=== PATIENT | female | born 1985 | race Caucasian/White ===

== ENCOUNTER 2023-05-01 14:44 | Outpatient (OUT) | payer BC, OTHER, SELFPAY ==
--- NOTE | 2023-05-01 14:48 | MM_ITS ---
Patient: TIAN HESS Exam Date: 05/01/2023 : 1985 Gender:F Ordering : Non-Staff Physician Admission #: [id number] Family : ORAL JOHNSTON Order #: [id number] CLICK HERE TO VIEW EXAM RADIOLOGY REPORT PROCEDURE: MM TOMOSYNTHESIS SCREENING BI COMPARISON: None. INDICATIONS: Screening Z12.31 Calculator Name NCI Breast Cancer Risk Assessment Tool 5 Year Breast Cancer Risk 0.40% Lifetime Breast Cancer Risk 8.00% Personal Breast Cancer No Personal Ovarian Cancer No Treatments None Family Cancers None LOCATION: [facility] BREAST COMPOSITION: Scattered areas fibroglandular density. FINDINGS: DIAGNOSTIC CATEGORY 1--NEGATIVE. RIGHT BREAST: No significant suspicious finding. LEFT BREAST: No significant suspicious finding. Incidental loop recorder within medial left breast. RECOMMENDATIONS: ROUTINE MAMMOGRAM AND CLINICAL EVALUATION IN 12 MONTHS. PLEASE NOTE: A NORMAL MAMMOGRAM DOES NOT EXCLUDE THE POSSIBILITY OF BREAST CANCER. A CLINICALLY SUSPICIOUS PALPABLE LUMP SHOULD BE BIOPSIED. Dictated by: Wale Ocampo M.D. on 05/03/2023 at 09:58 Approved by: Wale Ocampo M.D. on 05/03/2023 at 10:00
== END 2023-05-01 14:45 | disposition home or self-care (01) ==
LOC: MAMMO 14:44
DX: Z12.31 Encounter for screening mammogram for malignant neoplasm of breast (principal)
CPT/HCPCS: 77063; 77067

== ENCOUNTER 2023-07-30 21:09 | Emergency (ER) | payer BC, OTHER, SELFPAY ==
[2023-07-30 21:17] VITALS: BP 140/80; PULSE 79; RESP 16; TEMP 36.6; O2SAT 97; BMI 38.7
[2023-07-30 21:45] VITALS: BP 133/73; PULSE 79; RESP 20; O2SAT 96
[2023-07-30 21:50] VITALS: PULSE 85
--- NOTE | 2023-07-30 21:51 | PC.NURSE ---
States had seizure on the 16th and has headache since.
[2023-07-30 22:00] VITALS: BP 133/69; PULSE 80; RESP 24; O2SAT 95
--- NOTE | 2023-07-30 22:09 | ED.GENADUL1 ---
HPI - General Adult General Chief complaint: Headache Stated complaint: MIGRAINE-LOOP RECORDER DIZZINESS Time Seen by Provider: 07/30/23 22:01 Source: patient Mode of arrival: walk-in History of Present Illness HPI narrative: presents complaining of migraine. States ongoing for 24 days. States she has had migraines last longer. States one last 48 days last year. States she has not been seen for her migraines. Does have a history of seizures. States workup was neg for seizure and she was referred to cardiology. Had loop recorder placed. States she had a 12 second pause and then another seizure . States it was after this last seizure that her migraine started. States cardiology is scheduling her for a pacemaker. Migraine associated with photophobia. States headache the same as past migraines. No fever or nausea. no paresthesia Onset (ago): week(s) Related Data Allergies Allergy/AdvReac Type Severity Reaction Status Date / Time amoxicillin Allergy Verified 07/30/23 21:32 Review of Systems ROS Status of ROS 10 or more systems reviewed and unremarkable except as noted in history and below PFSH PFSH Social History Smoking status: Never smoker Exam Constitutional Vital Signs, click to edit/add: Last Vital Signs Temp 97.8 F 07/30/23 21:17 Pulse 69 07/31/23 00:00 Resp 16 07/31/23 00:00 BP 132/68 07/31/23 00:00 Pulse Ox 96 07/31/23 00:00 O2 Del Method Room Air 07/31/23 00:00 Common normals: no apparent distress, average body habitus, oriented x3, no limitations, healthy appearing, alert and well nourished Other: patient resting and playing with her phone HENMT Common normals: normocephalic and head/scalp atraumatic Eye Common normals: EOMs intact bilaterally and conjunctivae normal Other: mild photophobia Respiratory Common normals: normal respiratory effort, no retractions, no use of accessory muscles and clear to auscultation bilaterally Cardio Common normals: regular rate, regular rhythm, S1 normal heart sound and S2 normal heart sound GI Common normals: Normal to inspection, nondistended, normoactive bowel sounds present, soft to palpation and non-tender Extremity Common normals: normal to inspection and full ROM Neuro Common normals: oriented x3, CN's II-XII intact bilaterally, moves all extremities, no focal motor deficits and no sensory deficits noted Psych Appearance: grossly normal Course Vital Signs Vital signs: Vital Signs Temperature 97.8 F 07/30/23 21:17 Pulse Rate 79 07/30/23 21:17 Respiratory Rate 16 07/30/23 21:17 Blood Pressure 140/80 07/30/23 21:17 Pulse Oximetry 97 07/30/23 21:17 Oxygen Delivery Method Room Air 07/30/23 21:17 Temperature 97.8 F 07/30/23 21:17 Pulse Rate 69 07/31/23 00:00 Respiratory Rate 16 07/31/23 00:00 Blood Pressure 132/68 07/31/23 00:00 Pulse Oximetry 96 07/31/23 00:00 Oxygen Delivery Method Room Air 07/31/23 00:00 Medical Decision Making MDM Narrative Medical decision making narrative: patient presents with a migraine. Treated successfully with resolution of her headache prior to discharge. Discharged home in improved condition. She is to follow up with her family doctor Lab Data Labs: Lab Results 07/30/23 Range/Units 22:45 WBC 13.4 H (4.0-11.0) 10^3/uL RBC 4.24 (4.20-5.40) 10^6/uL Hgb 12.6 (12.0-16.0) g/dL Hct 38.5 (36.0-48.0) % MCV 90.8 (81.0-99.0) fL MCH 29.7 (26.7-34.0) pg MCHC 32.7 (29.9-35.2) g/dL RDW 12.5 (11.0-15.0) % Plt Count 311 (150-450) 10^3/uL MPV 9.7 (9.5-13.5) fL Neut % (Auto) 71.9 (43.0-75.0) % Lymph % (Auto) 18.9 L (20.5-60.0) % [place] % (Auto) 7.6 (1.7-12.0) % Eos % (Auto) 0.7 L (0.9-7.0) % Baso % (Auto) 0.6 (0.2-2.0) % Neut # (Auto) 9.7 H (1.4-6.5) 10^3/uL Lymph # (Auto) 2.5 (1.2-3.8) 10^3/uL [place] # (Auto) 1.0 H (0.3-0.8) 10^3/uL Eos # (Auto) 0.1 (0.0-0.7) 10^3/uL Baso # (Auto) 0.1 (0.0-0.1) 10^3/uL Abs Immat Gran (auto) 0.04 H (0.00-0.03) 10^3/uL Imm/Tot Granulo (auto) 0.3 (0.0-0.5) % Sodium 135 L (136-145) mmol/L Potassium 5.4 H (3.5-5.1) mmol/L Chloride 104 (98-107) mmol/L Carbon Dioxide 25.4 (21.0-32.0) mmol/L Anion Gap 11.0 BUN 14.0 (7.0-18.0) mg/dL Creatinine 0.67 (0.55-1.02) mg/dL Est GFR ( Amer) >60 (>=60) Est GFR (Non-Af Amer) >60 (>=60) BUN/Creatinine Ratio 20.9 Glucose 83 (74-106) mg/dL Calcium 8.5 (8.5-10.1) mg/dL Discharge Plan Discharge Chief Complaint: Headache Clinical Impression: Migraine Patient Disposition: Home, Self-Care Instructions: Migraine Headache (ED) Stand Alone Forms: Portal Instructions Referrals: Physician,Non-Staff, MD [Primary Care Provider] - 1 week
[2023-07-30 22:30] VITALS: BP 124/65; PULSE 66; RESP 18; O2SAT 94
[2023-07-30 22:56] LABS: Basophils Absolute Auto 0.1 10^3/uL (0.0-0.1); Basophils Percent Auto 0.6 % (0.2-2.0); Eosinophils Absolute Auto 0.1 10^3/uL (0.0-0.7); Eosinophils Percent Auto 0.7 % (0.9-7.0); Hematocrit 38.5 % (36.0-48.0); Hemoglobin 12.6 g/dL (12.0-16.0); Immature Granulocytes Abs Auto 0.04 10^3/uL (0.00-0.03); Immature Granulocytes Pct Auto 0.3 % (0.0-0.5); Lymphocytes Absolute Auto 2.5 10^3/uL (1.2-3.8); Lymphocytes Percent Auto 18.9 % (20.5-60.0); Mean Corpuscular HGB Conc 32.7 g/dL (29.9-35.2); Mean Corpuscular Hemoglobin 29.7 pg (26.7-34.0); Mean Corpuscular Volume 90.8 fL (81.0-99.0); Mean Platelet Volume 9.7 fL (9.5-13.5); Monocytes Percent Auto 7.6 % (1.7-12.0); Neutrophils Absolute Auto 9.7 10^3/uL (1.4-6.5); Neutrophils Percent Auto 71.9 % (43.0-75.0); Platelet Count 311 10^3/uL (150-450); Red Blood Count 4.24 10^6/uL (4.20-5.40); Red Cell Distribution Width 12.5 % (11.0-15.0); White Blood Count 13.4 10^3/uL (4.0-11.0)
[2023-07-30] MEDS: 0.9 % SODIUM CHLORIDE 1,000 ML 999 ML IV (22:57)
[2023-07-30] MEDS: METOCLOPRAMIDE HCL 10 MG/2 ML VIAL IVP (22:58)
[2023-07-30] MEDS: MAGNESIUM SULFATE IN WATER 2 GM/50 ML PREMIX IV (22:58)
[2023-07-30] MEDS: METHYLPREDNISOLONE SOD SUCC PF 125 MG/2 ML VIAL IVP (22:58)
[2023-07-30 23:11] LABS: BUN Creatinine Ratio 20.9; Calcium 8.5 mg/dL (8.5-10.1); Carbon Dioxide 25.4 mmol/L (21.0-32.0); Chloride 104 mmol/L (98-107); Estimated GFR (African America >60 (>=60); Estimated GFR (Non-African Ame >60 (>=60); Glucose 83 mg/dL (74-106); Potassium 5.4 mmol/L (3.5-5.1); Sodium 135 mmol/L (136-145)
[2023-07-31] VITALS: BP 132/68; PULSE 69; RESP 16; O2SAT 96
--- NOTE | 2023-07-31 00:19 | ECG_ITS ---
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
[2023-07-31 00:48] VITALS: BP 131/65; PULSE 82; RESP 16; O2SAT 95
== END 2023-07-31 01:12 | disposition home or self-care (01) ==
PROVIDERS: Emergency Provider Internal Medicine
DX: G43.909 Migraine, unspecified, not intractable, without status migrainosus (principal)
CPT/HCPCS: 36415; 80048; 85025; 93005; 96365; 96375; 99284; J2765; J2930; J3475

== ENCOUNTER 2023-08-28 09:25 | Outpatient (OUT) | payer BC, OTHER, SELFPAY ==
--- OUTSIDE RECORDS SUMMARY | 2023-08-28 09:32 | XMS_ITS | CCD ---
Author Name Unknown Address [address] [place] [address] Organization [facility] Care Team Providers Care Customer Sales Advisor Name Role Phone TUCKER ., MR MARIANNE Admitting Unavailable WEST, DR EDY Carrasco Consulting Unavailable TUCKER ., MR MARIANNE Attending Unavailable TUCKER ., MR LOPES Consulting Unavailable FRENCHPHILEW Consulting Unavailable BORIS, JADA Admitting Unavailable BORIS, JADA Attending Unavailable BORIS, JADA Consulting Unavailable STEPANIC, DR MIXON Consulting Unavailable STEPANIC, DR MIXON Admitting Unavailable STEPANIC, DR MIXON Attending Unavailable ZIEBER, DR TEVIN Alvarado Consulting Unavailable SAM, DR CASTAÑEDA Attending Unavailable SAM, DR CASTAÑEDA Consulting Unavailable SAM, DR CASTAÑEDA Admitting Unavailable ZIEBER, DR TEVIN Alvarado Consulting Unavailable KARLEY GUARDADO Admitting Unavailable BARMPI, KARLEY Attending Unavailable RASIHIKARLEY Consulting Unavailable TUCKER ., MR LOPES Attending Unavailable TUCKER ., MR LOPES Admitting Unavailable MISC, DR NARAYAN Admitting Unavailable MISC, DR NARAYAN Attending Unavailable MISC, DR NARAYAN Consulting Unavailable MISC, DR NARAYAN Admitting Unavailable MISC, DR NARAYAN Attending Unavailable MISC, DR NARAYAN Consulting Unavailable ALIYA VASQUEZ Attending Unavailable CATHLEEN LAW G Referring Unavailable THANH, CATHLEEN G Primary Care Unavailable ALIYA VASQUEZ Attending Unavailable THANH, CATHLEEN G Referring Unavailable THANH, CATHLEEN G Primary Care Unavailable ITZ WOO Attending Unavailable CATHLEEN LAW G Referring Unavailable THANH, CATHLEEN G Primary Care Unavailable ALIYA VASQUEZ Attending Unavailable CATHLEEN LAW G Referring Unavailable THANH, CATHLEEN G Primary Care Unavailable BETSY, PATRICK Admitting Unavailable BETSY, PATRICK Attending Unavailable CLIFF SANCHEZ Admitting Unavailable CLIFF SANCHEZ Attending Unavailable RASHII, KARLEY Referring Unavailable SHENG LIRIANO Referring Unavailable CLAUDY, SHENG Referring Unavailable KARLEY GUARDADO Attending Unavailable ANNALISE GARCIA Attending Unavailable KARLEY GUARDADO Attending Unavailable KARLEY GUARDADO Attending Unavailable Allergies Allergy Classification Reported Allergen(s) Allergy Type Date of Onset Reaction(s) Facility (3 sources) Amoxicillin; Translations: [AMOXICILLIN] Drug Allergy 07-19-2020 [facility] Repository Problems Active Problems Problem Classification Problem Date Documented Da te Episodic/Chronic Adjustment disorders (1 source) Adjustment disorder with mixed anxiety and depressed mood; Translations: [Adjustment disorder with mixed anxiety and depressed mood] Onset: 01-17-2021 Chronic Anxiety disorders (1 source) Post-traumatic stress disorder, unspecified; Translations: [Post-traumatic stress disorder, unspecified] Onset: 08-08-2023 Chronic Conduction disorders (2 sources) Other specified heart block; Translations: [Other specified heart block] Onset: 07-09-2023 Chronic Epilepsy; convulsions (6 sources) Unspecified convulsions; Translations: [UNSPECIFIED CONVULSIONS] Onset: 03-31-2022 Episodic Other acquired deformities (4 sources) Other specified acquired deformities of left upper arm; Translations: [OTH SPEC ACQ DEFORMITIES LT UP ARM] Onset: 10-24-2022 Episodic Other lower respiratory disease (1 source) Snoring; Translations: [SNORING] Onset: 11-03-2022 Episodic Other non-traumatic joint disorders (4 sources) Other instability, left shoulder; Translations: [OTHER INSTABILITY LEFT SHOULDER] Onset: 09-25-2022 Episodic Residual codes; unclassified (4 sources) Obstructive sleep apnea (adult) (pediatric); Translations: [OBSTRUCTIVE SLEEP APNEA] Onset: 11-15-2022 Chronic Sprains and strains (2 sources) Superior glenoid labrum lesion of left shoulder, initial encounter; Translations: [Other sprain of left shoulder joint, initial encounter] Onset: 09-27-2022 Episodic Past or Other Problems Problem Classification Problem Date Documented Da te Episodic/Chronic Administrative/social admission (1 source) Disruption of family by separation and divorce; Translations: [Disruption of family by separation and divorce] Onset: 01-17-2021 Episodic Other aftercare (2 sources) Encounter for other specified surgical aftercare; Translations: [Encounter for other specified surgical aftercare] Onset: 12-06-2022 Episodic Syncope (6 sources) Syncope and collapse; Translations: [SYNCOPE AND COLLAPSE] Onset: 08-08-2022 Episodic Results Test Name Value Interpretation Reference Range Facility Orders Onlyon 08-27-2023 Orders Only [id number] Tian Hess 1985 Date Provider Department Center 08/27/2023 JONN FRAIRE [facility] No family history on file Normal [facility] Letter (Out)on 08-21-2023 Letter (Out) [id number] Tian Hess 1985 Date Provider Department Center 08/21/2023 None-None [facility] No family history on file Normal [facility] Office Visiton 08-01-2023 Follow-up visit [id number] Tian Hess 1985 Provider Department Center 08/01/2023 Malika6-KARLEY GUARDADO CARD [facility] No family history on file Level of Service:60481 [place] OFFICE/OUTPATIENT ESTABLISHED MOD MDM 30 MIN Normal [facility] CBC WITH AUTO DIFFERENTIALon 07-09-2023 Basophils (Bld) [#/Vol] 0.05 10*3/uL Normal 0.00-0.20 [facility] Comment on above: Performed By: #### L [id number] ####[facility] (BEAKER)[address] [facility] [place] [address] Basophils/100 WBC (Bld) 0.7 % Normal 0.0-1.0 [facility] Comment on above: Performed By: #### L [id number] ####[facility] (BEAKER)[address] [facility] [place] [address] Eosinophils (Bld) [#/Vol] 0.04 10*3/uL Normal 0.00-0.50 [facility] Comment on above: Performed By: #### L [id number] ####[facility] (BEAKER)[address] [facility] [place] [address] Eosinophils/100 WBC (Bld) 0.5 % Normal 0.0-6.0 [facility] Comment on above: Performed By: #### L [id number] ####[facility] ([facility])[address] [place] [address] Erythrocyte distribution width (RBC) [Ratio] 12.8 % Normal 11.5-15.0 [facility] Comment on above: Performed By: #### L [id number] ####[facility] ([facility])[address] [place] [address] ERYTHROCYTE MEAN CORPUSCULAR HEMOGLOBIN CONCENTRATION (G/DL) BY AUTOMATED 33.0 g/dL Normal 32.0-35.0 [facility] Comment on above: Performed By: #### L [id number] ####[facility] ([facility])[address] [place] [address] Hematocrit (Bld) [Volume fraction] 44.5 % Normal 36.0-48.0 [facility] Comment on above: Performed By: #### L [id number] ####[facility] ([facility])[address] [place] [address] Hemoglobin (Bld) [Mass/Vol] 14.7 g/dL Normal 12.0-15.0 [facility] Comment on above: Performed By: #### L [id number] ####[facility] ([facility])[address] [place] [address] Immature granulocytes (Bld) [#/Vol] 0.01 10*3/uL Normal 0.00-0.20 [facility] Comment on above: Performed By: #### L [id number] ####[facility] ([facility])[address] [place] [address] Immature granulocytes/100 WBC (Bld) 0.1 % Normal 0.0-1.0 [facility] Comment on above: Performed By: #### L [id number] ####[facility] ([facility])[address] [place] [address] Lymphocytes (Bld) [#/Vol] 2.06 10*3/uL Normal 1.20-4.00 [facility] Comment on above: Performed By: #### L [id number] ####[facility] (BEAKER)[address] [place] [address] Lymphocytes/100 WBC (Bld) 27.1 % Normal 20.0-45.0 [facility] Comment on above: Performed By: #### L [id number] ####[facility] (BEAKER)[address] [place] [address] MCH (RBC) [Entitic mass] 29.3 pg Normal 27.0-33.0 [facility] Comment on above: Performed By: #### L [id number] ####[facility] (BEAKER)[address] [place] [address] MCV (RBC) [Entitic vol] 88.8 fL Normal 82.0-98.0 [facility] Comment on above: Performed By: #### L [id number] ####[facility] (BEAKER)[address] [place] [address] Monocytes (Bld) [#/Vol] 0.51 10*3/uL Normal 0.10-1.00 [facility] Comment on above: Performed By: #### L [id number] ####[facility] (BEAKER)[address] [place] [address] Monocytes/100 WBC (Bld) 6.7 % Normal 5.0-12.0 [facility] Comment on above: Performed By: #### L [id number] ####[facility] (BEAKER)[address] [place] [address] Neutrophils (Bld) [#/Vol] 4.92 10*3/uL Normal 1.60-7.60 [facility] Comment on above: Performed By: #### L [id number] ####[facility] (BEAKER)[address] [place] [address] Neutrophils/100 WBC (Bld) 64.9 % Normal 40.0-72.0 [facility] Comment on above: Performed By: #### L [id number] ####[facility] (BEAKER)[address] [place] [address] NRBC (PER 100 WBCS) BY AUTOMATED COUNT 0.0 % Normal 0 [facility] Comment on above: Performed By: #### L [id number] ####[facility] ([facility])[address] [place] [place] [address] PLATELETS (10*3/UL) IN BLOOD AUTOMATED COUNT 359 10*3/uL Normal 150-400 [facility] Comment on above: Performed By: #### L [id number] ####[facility] ([facility])[address] [place] [address] RBC (Bld) [#/Vol] 5.01 10*6/uL High 3.80-5.00 [facility] Comment on above: Performed By: #### L [id number] ####[facility] ([facility])[address] [place] [address] WBC (Bld) [#/Vol] 7.59 10*3/uL Normal 4.00-10.60 [facility] Comment on above: Performed By: #### L [id number] ####[facility] ([facility])[address] [place] [address] COMPREHENSIVE METABOLIC PANE Earle 07-09-2023 Albumin [Mass/Vol] 4.6 g/dL Normal 3.5-5.7 [facility] Comment on above: Performed By: #### L [id number] #### [facility] ([facility]) [address] [place] [address] ALP [Catalytic activity/Vol] 72 U/L Normal 34-104 [facility] Comment on above: Performed By: #### L [id number] #### [facility] ([facility]) [address] [place] [address] ALT [Catalytic activity/Vol] 15 U/L Normal 7-52 [facility] Comment on above: Performed By: #### L [id number] #### [facility] ([facility]) [address] [place] [address] Anion gap [Moles/Vol] 12 mmol/L Normal 7-20 [facility] Comment on above: Performed By: #### L [id number] #### [facility] ([facility]) [address] [place] [address] AST [Catalytic activity/Vol] 17 U/L Normal 13-39 [facility] Comment on above: Performed By: #### L [id number] #### [facility] ([facility]) [address] [place] [address] Bilirubin [Mass/Vol] 0.4 mg/dL Normal 0.3-1.0 [facility] Comment on above: Performed By: #### L [id number] #### [facility] ([facility]) [address] [place] [address] Calcium [Mass/Vol] 9.3 mg/dL Normal 8.6-10.3 [facility] Comment on above: Performed By: #### L [id number] #### [facility] ([facility]) [address] [place] [address] Chloride [Moles/Vol] 106 mmol/L Normal 98-107 [facility] Comment on above: Performed By: #### L [id number] #### [facility] ([facility]) [address] [place] [address] CO2 [Moles/Vol] 23 mmol/L Normal 21-31 [facility] Comment on above: Performed By: #### L [id number] #### [facility] ([facility]) [address] [place] [address] Creatinine [Mass/Vol] 0.67 mg/dL Normal 0.60-1.20 [facility] Comment on above: Performed By: #### L [id number] #### [facility] ([facility]) [address] [place] [address] GLOMERULAR FILTRATION RATE ML/MIN/1.73 SQ M.PREDICTED 113.2 mL/min/1.73m*2 Normal >60.0 [facility] Comment on above: Result Comment: The [facility]???s estimated glomerular filtration rate (eGFR) will no longer include consideration of race in its calculation. The National Kidney Foundation???s eGFR Task Force developed new recommendations for the estimation of the glomerular filtration rate in the [place] They recommend immediate implementation of the new equation refit without the race variable in all laboratories because the calculation does not include race. In addition to not including race in the calculation and reporting, it included diversity in its development, and has acceptable performance characteristics and potential consequences that do not disproportionately affect any one group of individuals. Performed By: #### L [id number] #### [facility] ([facility]) [address] [place] [address] Glucose [Mass/Vol] 84 mg/dL Normal 70-100 [facility] Comment on above: Performed By: #### L [id number] #### [facility] ([facility]) [address] [place] [address] Potassium [Moles/Vol] 4.4 mmol/L Normal 3.5-5.1 [facility] Comment on above: Performed By: #### L [id number] #### [facility] ([facility]) [address] [place] [address] Protein [Mass/Vol] 7.1 g/dL Normal 6.0-8.3 [facility] Comment on above: Performed By: #### L [id number] #### [facility] ([facility]) [address] [place] [address] Sodium [Moles/Vol] 137 mmol/L Normal 136-145 [facility] Comment on above: Performed By: #### L [id number] #### [facility] ([facility]) [address] [place] [address] Urea nitrogen [Mass/Vol] 14 mg/dL Normal 7-25 [facility] Comment on above: Performed By: #### L [id number] #### [facility] ([facility]) [address] [place] [address] UREA NITROGEN/CREATININE (MASS RATIO) IN SER/PLAS 20.9 Normal [facility] Comment on above: Performed By: #### L [id number] #### [facility] ([facility]) [address] [place] [address] EDPROVon 07-09-2023 EDPROV HPI Chief Complaint Patient presents with Heart Problem Pt states that she has a loop recorder in place and experienced asystole for 12 seconds with seizure on Sunday. Pt states that she was advised by her cna hha Dr Sanchez to come to the ED for pacemaker placement. Pt states that she had the loop recorder placed to figure out why she is having seizures. Pt is well-appearing in triage and states that she feels normal at this time. This patient presented with a near syncopal episode Sunday and seizure-like activity since she has had multiple episodes of the same she states she was called by Dr. Meyers's office where her loop recorder had showed a 12-second sinus pause and that she should come immediately to the emergency room for the possibility of a pacemaker. She said she did have seizures as a kid but was never on any antiepileptic meds and she does not have any fever chills cough cold or other difficulty. Purnima Coma Scale Score: 15 Patient History Past Medical History: Diagnosis Date Seizure (CMS/HCC) Syncope No past surgical history on file. No family history on file. Social History Tobacco Use Smoking status: Former Types: Cigarettes Smokeless tobacco: Never Substance Use Topics Alcohol use: Yes Comment: occasional Drug use: Never Review of Systems Review of Systems All other systems reviewed and are negative. Physical Exam ED Triage Vitals Temp Heart Rate Resp BP 07/09/23 1217 07/09/23 1217 07/09/23 1217 07/09/23 1217 36.9 ???C (98.5 ???F) 77 20 (!) 162/104 SpO2 Temp src Heart Rate Source Patient Position 07/09/23 1217 -- 07/09/23 1254 07/09/23 1254 100 % Monitor Sitting BP Location FiO2 (%) 07/09/23 1254 -- Left arm Physical Exam Constitutional: Appearance: Normal appearance. HENT: Head: Normocephalic and atraumatic. Nose: Nose normal. Mouth/Throat: Mouth: Mucous membranes are moist. Eyes: Extraocular Movements: Extraocular movements intact. Pupils: Pupils are equal, round, and reactive to light. Cardiovascular: Rate and Rhythm: Normal rate. Pulmonary: Effort: Pulmonary effort is normal. Breath sounds: Normal breath sounds. Abdominal: General: Abdomen is flat. Musculoskeletal: Cervical back: Normal range of motion and neck supple. Neurological: Mental Status: She is alert. Procedures ED Course & MDM Diagnoses as of 07/10/23 1354 Sinus pause Observed seizure-like activity ([facility]/HCC) Medical Decision Making I spoke with insurance legal assistant and I spoke with the hospitalist there is no notes from cardiology and no notes from her monitoring center so at this point we will arrange for observation until this can be a gathered. With the significant concern of a sinus pause Attestion Sheng Liriano, DO 07/10/23 1358 Normal [facility] HPon 07-09-2023 HP --- Attestation signed by Cliff Sanchez MD at 07/18/2023 5:52 PM By using the attestations below, the signing clinician agrees that I have read and verify that the documentation has been personally reviewed by me and ensure that the documentation accurately reflects the encounter. GC: I personally saw this patient on the day of the encounter, performed the ferreira portion(s) of the service and participated in the management and confirm the resident's documentation. Please note there may be an additional personal documentation from me. Pt can benefit from PPM. We discussed about possible leadless vs TV PPM. She will benefit from leadless PPM. However since she has been given diet and unable to do it today, she will be admitted and planned for procedure on 07/11/23. Update: Pt states she does not want to stay until 07/11/23. So this will be scheduled as an outpt. Pt agreeable and plan conveyed to team. [facility] Cardiology Note History: Mrs. Hess, a 38 year old female patient is presenting for lightheadedness/ syncope. Patient reported that she started experiencing lightheadedness 2 days ago associated with syncope event. A loop recorder showed consistent 12 sinus pauses. Patient presented to the hospital for further evaluation. Interim History: 10/2022 Here for follow-up regarding syncope. She was supposed to have tilt table test done and was nonobstructive not to use so she arrived and was unable to do the test. [facility] has not called her back to do the tilt table test. Her event monitor is not finalized but I have reviewed and there are no concerning rhythms that I can say are related to her all of her syncopal episodes. In the last year she has had 9 syncopal episodes and event monitor is inconclusive. She was seen by neurologist who is ruled out seizures. I discussed with patient she is a good candidate for loop monitor so we can monitor for any abnormal rhythms that may be causing her syncope. I discussed with her to get a tilt table test done at [facility] so it can be done sooner than later Update 03/19/23: She is here for follow-up s/p loop implant Loop data review reveals some patient triggered events of lightheadedness and palpitations but they do not appear to be rhythm related. She had 1 event of what the loop labeled as VT but it is double counting QRS and T wave. Otherwise loop data review reveals no significant arrhythmia at this time. Patient has had some symptoms of lightheadedness and palpitations but otherwise no syncope, chest pain, shortness of breath, orthopnea. Review of Systems Cardiovascular: Positive for syncope. Negative for chest pain, dyspnea on exertion and palpitations. Respiratory: Negative for shortness of breath and sleep disturbances due to breathing. Neurological: Negative for dizziness, light-headedness and weakness. All other systems reviewed and are negative. HPI: Tian Hess is a 37 y.o. year old with past medical history of seizures (possible pseudoseizure?) And syncope. She was recently seen by neurologist who did an EEG but cannot find seizure activity. She is not on seizure medications. She states she has prodromal symptoms of the seizure and knows when she is going to have a seizure but denies having palpitations prior to bed states she is unsure if she starts to become unaware of her surroundings. She was referred to us for possible cardiac related syncope. I discussed with her we can attempt an event monitor to see if we find anything as she is unsure with her syncopal episodes if she has had any palpitations or anything similar. We discussed doing a tilt table test to further evaluate her syncopal episodes. She denies chest pain, shortness of breath with exertion or at rest, dizziness, lightheadedness, and denies symptoms with postural changes. PMH: Medical History Past Medical History: Diagnosis Date Seizure (CMS/[facility]) Syncope PSH: Surgical History No past surgical history on file. SH: Social Determinants of Health Tobacco Use: Medium Risk (03/19/2023) Patient History Smoking Tobacco Use: Former Smokeless Tobacco Use: Never Passive Exposure: Not on file Alcohol Use: Not on file Financial Resource Strain: Not on file Food Insecurity: Not on file Transportation Needs: Not on file Physical Activity: Not on file Stress: Not on file Social Connections: Not on file Intimate Partner Violence: Not on file Depression: Not on file Housing Stability: Not on file Allergies: Allergies Allergen Reactions Amoxicillin Unknown Weight: 117kg Vitals: 03/19/23 1100 BP: 136/88 Pulse: 85 SpO2: 98% Meds: Current Outpatient Medications on File Prior t (more content not included)... Normal [facility] MAGNESIUMon 07-09-2023 Magnesium [Mass/Vol] 1.9 mg/dL Normal 1.9-2.7 [facility] Comment on above: Performed By: #### L [id number] ####[facility] (BEAKER)[address] [place] [address] NURSNOTEon 07-09-2023 NURSNOTE This patient was supposed to have a pacemaker placed earlier today for her seizure disorder. that did not end up happening because she was given something to eat in the ER and she should have been NPO for the procedure. The procedure will not happen until Sunday according to her cna hha Dr. Cliff Sanchez ([phone]). RN spoke to Dr. Sanchez around 1999. Dr. Sanchez stated that he is okay with patient being discharged tonight. Patient stated that she would like to be discharged because she had not made arrangements at home to stay in the hospital until Sunday. He states that he will do the procedure outpatient on Sunday. Information was communicated with Hospitalists Shari Zazueta, Pierce Bruno and Costa Potter via [employer]. NANI Zazueta has placed discharge orders. Charge nurse Rose Marie notified. Patient's friend has arrived and is waiting in the ER to take patient home. [facility] Orders Onlyon 07-09-2023 Orders Only [id number] Tian Hess 1985 F Date Provider Department Center 07/09/2023 BLAS GONZALEZ [facility] No family history on file [facility] TROPONIN Ion 07-09-2023 Troponin I.cardiac [Mass/Vol] 0.00 ng/mL Normal 0.00-0.04 [facility] Comment on above: Performed By: #### L [id number] ####[facility] (BEAKER)[address] [place] [address] Office Visiton 03-19-2023 Follow-up visit [id number] Tian Hess 1985 Date Provider Department Center 03/19/2023 1596KARLEY TRAORE K[facility]Y [facility] No family history on file Level of Service:35846 [place] OFFICE/OUTPATIENT ESTABLISHED LOW MDM 20-29 MIN [facility] Office Visiton 12-06-2022 Follow-up visit [id number] Tian Hess 1985 F Date Provider Department Center 12/06/2022 [id number] MILLER KIRSTY [facility] No family history on file Level of Service:94226 [place] POSTOP FOLLOW UP VISIT RELATED TO ORIGINAL PX [facility] HPon 11-29-2022 [facility] Reason for visit: syncope follow up Hpi: Here for follow-up regarding syncope. She was post have tilt table test done and was nonobstructive not to use so she arrived and was unable to do the test. [facility] has not called her back to do the tilt table test. Her event monitor is not finalized but I have reviewed and there are no concerning rhythms that I can say are related to her all of her syncopal episodes. In the last year she has had 9 syncopal episodes and event monitor is inconclusive. She was seen by neurologist who is ruled out seizures. I discussed with patient she is a good candidate for loop monitor so we can monitor for any abnormal rhythms that may be causing her syncope. I discussed with her to get a tilt table test done at [facility] so it can be done sooner than later Review of Systems Cardiovascular: Positive for syncope. Negative for chest pain, dyspnea on exertion and palpitations. Respiratory: Negative for shortness of breath and sleep disturbances due to breathing. Neurological: Negative for dizziness, light-headedness and weakness. All other systems reviewed and are negative. HPI: Tian Hess is a 37 y.o. year old with past medical history of seizures (possible pseudoseizure?) And syncope. She was recently seen by neurologist who did an EEG but cannot find seizure activity. She is not on seizure medications. She states she has prodromal symptoms of the seizure and knows when she is going to have a seizure but denies having palpitations prior to bed states she is unsure if she starts to become unaware of her surroundings. She was referred to us for possible cardiac related syncope. I discussed with her we can attempt an event monitor to see if we find anything as she is unsure with her syncopal episodes if she has had any palpitations or anything similar. We discussed doing a tilt table test to further evaluate her syncopal episodes. She denies chest pain, shortness of breath with exertion or at rest, dizziness, lightheadedness, and denies symptoms with postural changes. PMH: Past Medical History: Diagnosis Date Seizure (CMS/HCC) Syncope PSH: No past surgical history on file. SH: Social Determinants of Health Tobacco Use: Medium Risk (03/19/2023) Patient History Smoking Tobacco Use: Former Smokeless Tobacco Use: Never Passive Exposure: Not on file Alcohol Use: Not on file Financial Resource Strain: Not on file Food Insecurity: Not on file Transportation Needs: Not on file Physical Activity: Not on file Stress: Not on file Social Connections: Not on file Intimate Partner Violence: Not on file Depression: Not on file Housing Stability: Not on file Allergies: Allergies Allergen Reactions Amoxicillin Unknown Weight: 117kg Vitals: 11/06/22 1015 BP: 141/83 Pulse: 94 SpO2: 98% Meds: No current outpatient medications on file prior to visit. No current facility-administered medications on file prior to visit. Physical Exam: Constitutional General Appearance: well-nourished, well-developed, appears stated age Level of Distress: comfortable Psychiatric Mental Status: alert, normal affect Orientation: oriented to time, place, and person Insight: good judgement Eyes Lids and Conjunctivae: non-injected, no xanthelasma ENMT Ears: no lesions on external ear Nose: no lesions on external nose Oropharynx: no cyanosis, no pallor Neck Neck: supple, trachea midline Carotid Arteries: bilateral normal upstroke, no bruits Jugular Veins: normal jugular venous pressure Thyroid: not enlarged Lungs Respiratory Effort: unlabored Chest Exam: normal curvature, no thoracic deformity Auscultation: clear, no wheezing, no rales, no rhonchi Cardiovascular Rate And Rhythm: regular Heart Sounds: normal S1, normal s2, no gallop Systolic Murmur: not heard Diastolic Murmur: not heard Extremities: no cyanosis, no edema, no peripheral signs of emboli Peripheral Pulses Radial Pulse: normal Abdomen Inspection and Palpation: soft, non distended, no bruit, non tender Musculoskeletal Inspection: no joint swelling Neurologic Gait: normal gait Skin Inspection and Palpation: warm and dry Nails: no clubbing Labs: @LABRESULTS@ No results found for: CHOLESTEROL TOTAL, HDL, LDL CALC, LDL DIRECT, TRIGLYCERIDES, TSH, T3 TOTAL, T4 TOTAL, THYROID PEROXIDASE AB, BNP, BNP, BNP EKG: No results found for this or any previous visit (from the past 4464 hour(s)). Echo: Stress test: Coronary angiogram: @CATH@ Diagnostic: Event monitor 07/2022 Assessment and Plan: Syncope and collapse - Did not tilt table done due to not being told not to eat on previous tilt table test to [facility], no one is called to schedule since -Patient has option to call [facility] and reschedule or have it done at an outlying facility -Due to (more content not included)... Normal [facility] NURSNOTEon 11-29-2022 NURSNOTE RN educated pt on d/ c instructions. RN encouraged pt to voice any questions or concerns. Pt verbalizes no questions or concerns at this time. Pt walked off of unit with all of belongings. Normal [facility] Letter (Out)on 11-09-2022 Letter (Out) [id number] Tian Hess 1985 F Date Provider Department Center 11/09/2022 None-None [facility] AUTH [facility] Medical C No family history on file [facility] Office Visiton 11-06-2022 Follow-up visit [id number] Tian Hess 1985 Provider Department Center 11/06/2022 Jmaes-KARLEY GUARDADO [facility] [place] No family history on file Level of Service:76034 [place] OFFICE/OUTPATIENT ESTABLISHED LOW [facility] 20-29 MIN Normal [facility] CT SHOULDER LT WO CONon 04-0 CT SHOULDER LT WO CON EXAMINATION: CT SHOULDER LT WO CON HISTORY: Acquired deformity of left upper arm ; chronic left shoulder dislocations COMPARISON: MRI shoulder left 09/25/2022 TECHNIQUE: Multi-planar CT images were created without IV contrast. Dose reduction techniques were achieved by using automated exposure control and/or adjustment of mA and/or kV according to patient size and/or use of iterative reconstruction technique. FINDINGS: BONES: No fracture, dislocation, or bone lesion. Subtle contour deformity along posterior margin humeral head may represent sequela of remote mild Hill-Sachs fracture. SOFT TISSUES: Negative. No visible soft tissue swelling. EFFUSION: None visible. OTHER: Negative. IMPRESSION: 1. No acute fracture, with specific attention to the anterior inferior corner of the glenoid, and the posterior aspect of the humeral head. 2. No dislocation or appreciable soft tissue abnormality. Electronically authenticated by: TEVIN PETERS Date: 2022-10-24 14:59 Normal [facility] MRI SHOULDER LT WO CONon MRI SHOULDER LT WO CON EXAM: MRI SHOULDER LT WO CON HISTORY: Instability of left shoulder joint COMPARISON: Fluoroscopy 09/25/2022. TECHNIQUE: MR arthrography of the left shoulder was performed with instillation of gadolinium into the glenohumeral joint. This included axial, coronal and sagittal T1 fat-sat, axial PD fat-sat, coronal PD fat-sat, coronal T2 fat sat and sagittal STIR imaging. FINDINGS: ACROMIOCLAVICULAR JOINT: No os acromiale is seen. Mild marginal spur at the acromioclavicular joint. There is a type II acromion noted. Minor increased fluid is noted in the subacromial/subdeltoid bursa, likely iatrogenic related to recent anesthetic injection. ROTATOR CUFF TENDONS: No rotator cuff tendon tear is identified. No rotator cuff muscle edema or atrophy is seen. BICEPS TENDON: The biceps tendon is intact and normally located. No biceps tenosynovitis is seen. LABRUM: Tear of the superior labrum containing contrast is seen between 10 o'clock and 12 o'clock. This likely extends into the anterosuperior quadrant and down to the anterior inferior labrum where there is a displaced tear associated with some periosteal stripping between 5 o'clock and 6 o'clock. No paralabral cyst. Posterior labrum is intact. GLENOHUMERAL JOINT: No significant glenohumeral joint osteoarthritis is identified. No significant thickening of the inferior glenohumeral ligament is noted. BONES: Subtle Hill-Sachs impaction deformity of the posterior superior humeral head. No glenoid fracture. OUTLET SPACES: No mass in the quadrilateral space or spinoglenoid notch. IMPRESSION: 1. Evidence of anterior shoulder instability with mild chronic Hill-Sachs impaction deformity. 2. Displaced tear of the anterior inferior labrum with some associated periosteal stripping. No glenoid fracture. 3. Additional labral tear of the anterosuperior and posterior superior labrum, as above. 4. No rotator cuff tear. Electronically authenticated by: MARIANNE FRENCH Date: 2022-09-25 16:38 Normal [facility] XR ARTHRO SHOULDER LTon 03-0 XR ARTHRO SHOULDER LT EXAMINATION: XR ARTHRO SHOULDER LT HISTORY: Instability of left shoulder joint COMPARISON: No relevant comparison available. TECHNIQUE: An arthrogram was performed under fluoroscopic guidance using non-ionic contrast material in the usual sterile manner after obtaining informed consent. Standard level fluoroscopic mode of operation utilized. 1.2 minutes of fluoroscopy. 3 images. FINDINGS: JOINT: Left shoulder NEEDLE: 25 gauge, 3.5 spinal needle. MEDICATION: 3 cc buffered 1% lidocaine for subcutaneous anesthesia 4 mL Omnipaque 300, 0.2 mL Dotarem, 5 ml 1% lidocaine injected into the joint space. TECHNIQUE: Anterior approach. A single stick was successful in gaining access to the joint space. CLINICAL: The patient had no pain before or after the procedure COMPLICATIONS: None. BONES: Normal. No erosion, osteophyte, fracture, or bony lesion. CARTILAGE: Normal. No visible erosion or interruption. CAPSULE: Normal. No visible capsular laxity or labrum tear. SKYLER-ARTICULAR: Normal. No visible skyler-articular soft tissue abnormality. LOOSE BODIES: None. OTHER: See separate MRI report. IMPRESSION: Technically successful left shoulder arthrogram Electronically authenticated by: EDY GARCIA Date: 2022-09-25 08:56 Normal [facility] ECHOCARDIO M/2D COMPLETEon 0 08-08-2022 ECHOCARDIO M/2D COMPLETE Patient: TIAN HESS Exam Date: 08/08/2022 : 1985 Gender:F Ordering : KARLEY GUARDADO Admission #: [id number] Family : Order #: [id number] CLICK HERE TO VIEW EXAM ECHOCARDIOGRAM REPORT PROCEDURE: CARDIO PULMONARY ECHOCARDIO M/2D COMP INDICATIONS: Syncope COMPARISON: None. DESCRIPTION: COMPLETE ECHOCARDIOGRAM Real-time transthoracic echocardiography with 2D, M-mode, spectral and color flow Doppler performed. QUALITY: Technical quality was good. LEFT VENTRICLE: Normal chamber size. Borderline left ventricular hypertrophy. Global left ventricular systolic function is normal. LV EF: Calculated left ventricular ejection fraction is 69% DIASTOLIC: Normal diastolic function. ATRIAL SEPTUM: LEFT ATRIUM: Normal chamber size. RIGHT ATRIUM: Normal chamber size. RIGHT VENTRICLE: Normal chamber size. Normal right ventricular systolic function. TRICUSPID VALVE: Normal mobility and thickness. No stenosis with trivial regurgitation. No evidence of pulmonary hypertension. RVSP 19 mmHg MITRAL VALVE: Normal mobility and thickness. No mitral valve prolapse. No evidence of mitral valve stenosis. There is no mitral annular calcification. Trivial mitral regurgitation. AORTIC VALVE: Normal trileaflet appearance. No visible sclerosis. Normal leaflet mobility. No evidence of aortic valve stenosis. No aortic regurgitation. AORTIC ROOT: Normal diameter and appearance. PULMONIC VALVE: Normal thickness and mobility. No stenosis. No regurgitation. PERICARDIUM: No evidence of pericardial effusion. IVC: Collapses with inspirations. Normal size. PLEURA: CONCLUSION: 1. Normal ventricular function. LVEF is 65 to 70%. 2. No valvular dysfunction. 3. No pericardial effusion. 4. Normal right-sided pressures. Adult Echocardiography Procedure Report Left Ventricle LVEDD (3.7 - 5.6 cm): 4.83 cm LVESD (2.2 - 4.0 cm): 3.34 cm LVIVS thickness (0.6 - 1.2 cm): 0.99 cm LVPW thickness (0.5 - 1.0 cm): 0.99 cm e': 0.17 m/s E - e': 5.01 LVOT Max Gradient: 6.55 mm[Hg], 6.55 mm[Hg] Peak Velocity (LVOT): 1.28 m/s, 1.28 m/s Mean Velocity (LVOT): 0.87 m/s, 0.89 m/s LVOT Diameter 1.99 cm Left Ventricular Ejection Fraction: 65-70 % Left Atrium LA Volume Index (2D A2C): 61.00 ml, 61.00 ml Left Atrium Systolic Dimension: 3.57 cm Mitral Valve MV E to A Ratio: 1.10 Mitral Valve A-Wave Peak Velocity: 0.78 m/s Mitral Valve E-Wave Peak Velocity: 0.86 m/s Right Ventricle RV Internal Diastolic Dimension: 3.08 cm Aorta AO Root Diam: 2.26 cm Ascending Ao Diam: 2.31 cm Aortic Valve AoV Area (Peak Yasir): 2.82 cm2, 2.82 cm2 AoV Area (VTI): 2.66 cm2, 2.66 cm2 Peak Velocity(Antegrade Flow): 1.41 m/s Peak Gradient(Antegrade Flow): 7.94 mm[Hg] Mean Velocity(Antegrade Flow): 0.98 m/s Mean Gradient(Antegrade Flow): 4.26 mm[Hg] Velocity Time Integral: 29.19 cm Tricuspid Valve Peak Velocity (Regurgitant Flow): 2.00 m/s, 1.43 m/s Peak Velocity: 0.64 m/s Pulmonic Valve Mean Gradient: 5.27 mm[Hg], 5.34 mm[Hg], 4.10 mm[Hg] Mean Velocity: 1.05 m/s, 1.06 m/s, 0.92 m/s Peak Velocity: 1.59 m/s, 1.62 m/s, 1.43 m/s Peak Gradient: 10.09 mm[Hg], 10.55 mm[Hg], 8.23 mm[Hg] Right Atrium Right Atrium Systolic Pressure: 27.74 ml, 27.74 ml Dictated by: Oral Navarrete M.D. on 08/10/2022 at 10:14 Approved by: Oral Navarrete M.D. on 08/10/2022 at 10:16 Normal [facility] XR Ankle Complete Righton XR Ankle Complete Right Please see the right foot x-ray report from this same date Report reported and signed by Jaspal Roblero on 08/04/2022 0702 Normal [facility] XR Foot Complete Right*on XR Foot Complete Right* EXAM: XR RIGHT FOOT AND ANKLE FINDINGS: Comparison made with prior right foot x-ray November 25, 2021. No acute cortical fracture. Minimal arthritis. Small plantar and Achilles calcaneal spurs. Similar appearing sclerosis posterior calcaneus, no cortical fracture identified. Normal subtalar joint and Bohler's angle. Mild lateral malleolar soft tissue swelling. Medial talar dome subchondral fracture, unlikely acute (no prior ankle x-rays available for comparison that would display the talar dome). IMPRESSION: Medial talar dome subchondral fracture, unlikely acute, though no prior ankle x-rays available for comparison. MRI will be of assistance for further characterization. Report reported and signed by Jaspal Roblero on 08/04/2022 0702 Normal [facility] XR Shoulder Complete Left*on 08-03-2022 XR Shoulder Complete Left* FINDINGS: Small joint effusion. Normal AC joint alignment, minimal arthritis. No cortical fracture. No Hill-Sachs deformity. Normal left upper chest. IMPRESSION: Joint effusion, no fracture. Given this history, MRI may be of assistance as tolerated by the patient Report reported and signed by Jaspal Roblero on 08/04/2022 0704 Normal [facility] MRI BRAIN WO W CONon 022 MRI BRAIN WO W CON EXAMINATION: MRI BRA IN WO W CON HISTORY: Seizure COMPARISON: No relevant comparison available. TECHNIQUE: A variety of imaging planes and parameters were utilized for visualization of suspected pathology. Images were performed without and with ml Dotarem contrast. FINDINGS: CEREBRUM: No edema, hemorrhage, mass, acute infarction, or inappropriate atrophy. CEREBELLUM: No edema, hemorrhage, mass, acute infarction, or inappropriate atrophy. BRAINSTEM: No edema, hemorrhage, mass, acute infarction, or inappropriate atrophy. CSF SPACES: Ventricles, cisterns, and sulci are appropriate for age. No hydrocephalus, subarachnoid hemorrhage, or mass. SKULL: No mass or other significant visible lesion. SINUSES: Limited views demonstrate no significant mucosal thickening or fluid. ORBITS: Limited views are unremarkable. OTHER: No abnormal meningeal or parenchymal enhancement. IMPRESSION: 1. No abnormal or suspicious findings to account for patient's symptoms. Electronically authenticated by: TEVIN PETERS Date: 2022-03-31 16:52 Normal [facility] QUANTIFERON TB GOLD PLUSon 0 02-05-2022 QuantiFERON Criteria Comment Normal [facility] Comment on above: Result Comment: Ludwin tiFERON-TB Gold Plus is a qualitative indirect test for M tuberculosis infection (including disease) and is intended for use in conjunction with risk assessment, radiography, and other medical and diagnostic evaluations. The QuantiFERON-TB Gold Plus result is determined by subtracting the Nil value from either TB antigen (Ag) value. The Mitogen tube serves as a control for the test. Performed By: #### Q NTTB #### [facility] [address] [place] [address] Dr. Karyna Purdy QuantiFERON Incubation Incubation performed. Normal [facility] Comment on above: Performed By: #### Q NTTB #### [facility] [address] [place] [address] Dr. Karyna Purdy QuantiFERON Mitogen Value >10.00 Normal [facility] Comment on above: Performed By: #### Q NTTB #### [facility] [address] [place] [address] Dr. Karyna Purdy QuantiFERON Nil Value 0.10 IU/mL Normal [facility] Comment on above: Performed By: #### Q NTTB #### [facility] [address] [place] [address] Dr. Karyna Purdy QuantiFERON TB1 Ag Value 0.10 IU/mL Normal [facility] Comment on above: Performed By: #### Q NTTB #### [facility] [address] [place] [address] Dr. Karyna Purdy QuantiFERON TB2 Ag Value 0.11 IU/mL Normal [facility] Comment on above: Performed By: #### Q NTTB #### [facility] [address] [place] [address] Dr. Karyna Purdy QuantiFERON-TB Gold Plus Negative Normal Negative [facility] Comment on above: Result Comment: No r esponse to M tuberculosis antigens detected. Infection with M tuberculosis is unlikely, but high risk individuals should be considered for additional testing (ATS/IDSA/CDC Clinical Practice Guidelines, 2017). The reference range is an Antigen minus Nil result of <0.35 IU/mL. Chemiluminescence immunoassay methodology Performed By: #### Q NTTB #### [facility] [address] [place] [address] Dr. Karyna Purdy HEPATITIS B SURFACE ANTIBODY , QUANTon 02-04-2022 Hepatitis B Surf AB Quant <3.1 Critically low Immunity>9.9 [facility] Comment on above: Result Comment: Stat us of Immunity Anti-HBs Level Inconsistent with Immunity 0.0 - 9.9 Consistent with Immunity >9.9 Performed By: #### H EPBSRF #### [facility] [address] [place] [address] Dr. Karyna Purdy MMR IMMUNITYon 02-04-2022 Mumps Abs, IgG 12.3 AU/mL Normal Immune >10.9 [facility] Comment on above: Result Comment: Nega tive <9.0 Equivocal 9.0 - 10.9 Positive >10.9 A positive result generally indicates past exposure to Mumps virus or previous vaccination. Performed By: #### M MRIMMU #### [facility] [address] [place] [address] Dr. Karyna Purdy Rubella Antibodies, IgG 2.43 index Normal Immune >0.99 [facility] Comment on above: Result Comment: Non- immune <0.90 Equivocal 0.90 - 0.99 Immune >0.99 Performed By: #### M MRIMMU #### [facility] [address], [place] [address] Dr. Karyna Purdy Rubeola Ab, IgG 45.1 AU/mL Normal Immune >16.4 [facility] Comment on above: Result Comment: Nega tive <13.5 Equivocal 13.5 - 16.4 Positive >16.4 Presence of antibodies to Rubeola is presumptive evidence of immunity except when acute infection is suspected. Performed By: #### M MRIMMU #### [facility] [address] [place], [place] [address] Dr. Karyan Purdy VARICELLA IGG ABon 2 Varicella Zoster IgG 522 index Normal Immune >165 [facility] Comment on above: Result Comment: Nega tive <135 Equivocal 135 - 165 Positive >165 A positive result generally indicates exposure to the pathogen or administration of specific immunoglobulins, but it is not indication of active infection or stage of disease. Performed By: #### V ARCEL #### [facility] [address], [place] [address] Dr. Karyna Purdy XR Foot Complete Right*on XR Foot Complete Right* FINDINGS: No cortical or stress fracture. No significant focal soft tissue swelling. Accessory ossification center is noted posterior to the talus characteristic of an os trigonum. IMPRESSION: No cortical or stress fracture. Report reported and signed by Jaspal Roblero on 11/25/2021 1447 Normal [facility] [employer] Encounters Encounter Date Encounter Type Care Provider Facility Start: 08-16-2023 End: 08-16-2023 ambulatory ALIYA Gamez [facility] Start: 08-08-2023 End: 08-08-2023 ambulatory ITZ WOO [facility] Start: 08-01-2023 End: 08-01-2023 ambulatory [facility] Start: 07-30-2023 End: 07-30-2023 ambulatory ALIYA Gamez [facility] Start: 07-18-2023 End: 07-18-2023 ambulatory ALIYA VASQUEZ [facility] Start: 07-09-2023 Emergency department patient visit SHENG CLAUDY [facility] Start: 07-09-2023 End: 07-09-2023 Evaluation and management of inpatient PATRICK [facility] Start: 03-19-2023 End: 03-19-2023 ambulatory [facility] Start: 12-06-2022 End: 12-06-2022 ambulatory ANNALISE GARCIA [facility] Start: 11-29-2022 End: 11-29-2022 ambulatory CLIFF SANCHEZ [facility] Start: 11-15-2022 End: 11-16-[address] DOCTOR FRIAS Facility:[facility] Start: 11-06-2022 End: 11-06-2022 ambulatory KARLEY [facility] Start: 10-25-2022 End: 10-26-[address] DOCTOR FRIAS Facility:[facility] Start: 10-24-2022 End: 10-25-[address] ORAL JOHNSTON Facility:[facility] Start: 09-25-2022 End: 09-25-2022 ambulatory MR MARIANNE TUCKER . Facility:[facility] Start: 09-14-2022 End: 09-15-2022 ambulatory [facility] Start: 08-15-2022 End: 09-13-2022 ambulatory MR MARIANNE TUCKER . Facility:[facility] Start: 08-08-2022 End: 08-09-2022 ambulatory KARLEY GUARDADO Facility:[facility] Start: 03-31-2022 End: 04-01-[address] GARRY VARGAS Facility:[facility] Start: 02-03-2022 End: 02-03-2022 ambulatory JADA ESCALANTE Facility:[facility] Procedures Date Procedure Procedure Detail Performing Clinician Start: 07-18-2023 Follow-up visit Follow-up ALIYA VASQUEZ Payers Date Payer Category Payer Unknown [id number] 2019 Unknown [id number] 1985 Unknown [id number] 2.16.84 [id number] 1985 Unknown [id number] 2.16.84 [id number] 1985 Unknown [id number] 2.16.84 [id number] 1985 Unknown [id number] 2.16.84 [id number] 1985 Unknown [id number] 2.16.84 [id number] 1985 Unknown [id number] 2.16.84 [id number] 1985 Unknown [id number] 2.16.84 0.1.833128.3.579.2.593 1985 Unknown [id number] 2.16.8 [id number] 1985 Unknown [id number] 2.16.84 0.1.724876.3.579.2.1286 1985 Unknown [id number] 2.16.84 0.1.544632.3.579.2.1286 1985 Unknown [id number] 2.16.84 [id number] 1961 Self-pay 1961 Unknown [id number] Unknown [id number] 2.16.84 [id number] Clinical Notes 11-06-2022 to 08-01-2023 Note Date & Type Note Facility 08-01-2023 Note [place] Cardiology Note [facility] Reason for visit: syncope follow up, s/p loop implant, 12 second pause on ILR 08/01/22: She is here for follow-up s/p loop implant She has had 2 sinus pauses none for 3 seconds and 1 for 12 seconds as noted below during this pause of 12.2 seconds patient states she had a seizure which she was never evaluated for it and has not let her neurologist know She used to see a neurologist. Seeing them as they could not figure out the cause for her seizures she has had a migraine since her seizure with no relief despite going to the ER for migraine recently she was reported to go to the ER when her 12-second pause was found and there was confusion regarding logistics of pacemaker placement and patient did not want to stay in the hospital for 2 to 3 days before procedure. We discussed driving restrictions and patient not be driving due to recent seizure and 12-second pause until pacemaker placed she is scheduled to have this done 08/2023 but I am going to try to have it moved up Otherwise loop data review reveals no significant arrhythmia at this time. Patient has had some symptoms of lightheadedness and palpitations but otherwise no syncope, chest pain, shortness of breath, orthopnea. 10/2022 HPI: Here for follow-up regarding syncope. She was supposed to have tilt table test done and was nonobstructive not to use so she arrived and was unable to do the test. [facility] has not called her back to do the tilt table test. Her event monitor is not finalized but I have reviewed and there are no concerning rhythms that I can say are related to her all of her syncopal episodes. In the last year she has had 9 syncopal episodes and event monitor is inconclusive. She was seen by neurologist who is ruled out seizures. I discussed with patient she is a good candidate for loop monitor so we can monitor for any abnormal rhythms that may be causing her syncope. I discussed with her to get a tilt table test done at [facility] so it can be done sooner than later Review of Systems Cardiovascular: Positive for syncope. Negative for chest pain, dyspnea on exertion and palpitations. Respiratory: Negative for shortness of breath and sleep disturbances due to breathing. Neurological: Negative for dizziness, light-headedness and weakness. All other systems reviewed and are negative. ---- HPI: Tian Hess is a 37 y.o. year old with past medical history of seizures (possible pseudoseizure?) And syncope. She was recently seen by neurologist who did an EEG but cannot find seizure activity. She is not on seizure medications. She states she has prodromal symptoms of the seizure and knows when she is going to have a seizure but denies having palpitations prior to bed states she is unsure if she starts to become unaware of her surroundings. She was referred to us for possible cardiac related syncope. I discussed with her we can attempt an event monitor to see if we find anything as she is unsure with her syncopal episodes if she has had any palpitations or anything similar. We discussed doing a tilt table test to further evaluate her syncopal episodes. She denies chest pain, shortness of breath with exertion or at rest, dizziness, lightheadedness, and denies symptoms with postural changes. PMH: Past Medical History: Diagnosis Date Seizure (CMS/HCC) Syncope PSH: No past surgical history on file. SH: Social Determinants of Health Tobacco Use: Medium Risk (07/09/2023) Patient History Smoking Tobacco Use: Former Smokeless Tobacco Use: Never Passive Exposure: Not on file Alcohol Use: Not on file Financial Resource Strain: Low Risk (07/09/2023) Overall Financial Resource Strain (CARDIA) Difficulty of Paying Living Expenses: Not hard at all Food Insecurity: Unknown (07/09/2023) Hunger Vital Sign Worried About Running Out of Food in the Last Year: Never true Ran Out of Food in the Last Year: Not on file Transportation Needs: Unknown (07/09/2023) PRAPARE - Transportation Lack of Transportation (Medical): No Lack of Transportation (Non-Medical): Not on file Physical Activity: Not on file Stress: Not on file Social Connections: Not on file Intimate Partner Violence: Unknown (07/09/2023) Humiliation, Afraid, Rape, and Kick questionnaire Fear of Current or Ex-Partner: No Emotionally Abused: Not on file Physically Abused: Not on file Sexually Abused: Not on file Depression: Not on file Housing Stability: Unknown (07/09/2023) Housing Stability Vital Sign Unable to Pay for Housing in the Last Year: Not on file Number of Places Lived in the Last Year: Not on file Unstable Housing in the Last Year: No Utilities: Not on file Allergies: Allergies Allergen Reactions Amoxicillin Unknown Weight: 113kg Vitals: 08/01/23 0923 BP: (!) 150/96 Pulse: 88 SpO2: (more content not included)... [facility] 08-01-2023 Note Patient here for que stions about upcoming PPM implant. She was seen in [facility] ED 2 days ago for migraine. Review of Systems Cardiovascular: Positive for chest pain, dyspnea on exertion, irregular heartbeat and palpitations. Respiratory: Positive for shortness of breath. Musculoskeletal: Positive for joint pain. Gastrointestinal: Positive for heartburn. Neurological: Positive for headaches, light-headedness and seizures. All other systems reviewed and are negative. [facility] 07-09-2023 Note Hospital Medicine History and Physical 07/09/2023 2:03 PM THE HOSPITALIST TEAM PREFERS TO USE [employer] FOR COMMUNICATION 7AM-7PM. IF I DO NOT RESPOND WITHIN 15 MINUTES, PLEASE PAGE ME/CALL THROUGH THE [employer] SUPERVISOR. FROM 7PM-7AM, PLEASE PAGE [phone](COVR) Chief Complaint Chief Complaint Patient presents with Heart Problem Pt states that she has a loop recorder in place and experienced asystole for 12 seconds with seizure on Sunday. Pt states that she was advised by her cna hha Dr Sanchez to come to the ED for pacemaker placement. Pt states that she had the loop recorder placed to figure out why she is having seizures. Pt is well-appearing in triage and states that she feels normal at this time. History of Present Illness Tian Hess is an 38 y.o. female admitted from er with complaints of feeling dizzy lightheadedness and palpitation and an episode of what she describes as her seizure patient had a loop recorder placed on November 29, 2022 with indication of SVT/AF surveillance. Patient was called by cardiology after she was noted to have 1 event of what the loop labeled as V. tach and questionable pauses patient stated that she had some symptoms of lightheadedness and palpitation. Patient denies any heavy intake of caffeine or energy drinks she is a non-smoker with no history of drug or alcohol dependence she denies any detailed table testing done recently patient denies any change in her weight and intolerance to heat or cold or tremors patient describes seizure as atypical no tonic-clonic activity stated that she is aware of the seizures she started staring and become quite she denies any postictal event incontinence of bowel or bladder or tongue biting Review of System and Physical Exam Temp: [36.9 ???C (98.5 ???F)] 36.9 ???C (98.5 ???F) Heart Rate: [68-77] 69 Resp: [15-20] 18 BP: (134-162)/(81-107) 149/81 Physical Exam Vitals reviewed. Constitutional: Appearance: She is obese. HENT: Head: Normocephalic and atraumatic. Right Ear: Tympanic membrane, ear canal and external ear normal. Left Ear: Tympanic membrane, ear canal and external ear normal. Nose: Nose normal. Mouth/Throat: Mouth: Mucous membranes are moist. Pharynx: Oropharynx is clear. Eyes: Conjunctiva/sclera: Conjunctivae normal. Pupils: Pupils are equal, round, and reactive to light. Cardiovascular: Rate and Rhythm: Normal rate and regular rhythm. Pulmonary: Effort: Pulmonary effort is normal. Breath sounds: Normal breath sounds. Abdominal: General: Abdomen is flat. Bowel sounds are normal. Palpations: Abdomen is soft. Musculoskeletal: General: Normal range of motion. Cervical back: Normal range of motion and neck supple. Skin: General: Skin is warm and dry. Capillary Refill: Capillary refill takes less than 2 seconds. Neurological: General: No focal deficit present. Mental Status: She is alert and oriented to person, place, and time. Psychiatric: Mood and Affect: Mood normal. Behavior: Behavior normal. Review of Systems Constitutional: Negative. HENT: Negative. Eyes: Negative. Dry eyes Respiratory: Negative. Cardiovascular: Positive for palpitations. Gastrointestinal: Negative. Endocrine: Negative. Musculoskeletal: Positive for arthralgias. Negative for back pain, gait problem, joint swelling, myalgias, neck pain and neck stiffness. Skin: Negative. Neurological: Positive for seizures and syncope. Hematological: Negative. Psychiatric/Behavioral: Negative. Problem List Patient Active Problem List Diagnosis Date Noted Asystole by electrocardiogram ([facility]) 07/09/2023 Implantable loop recorder present 03/29/2023 Intractable migraine with aura without status migrainosus 02/19/2023 ADELIA (obstructive sleep apnea) 02/19/2023 Syncope and collapse Adjustment disorder with mixed anxiety and depressed mood 01/17/2021 Marital estrangement 01/17/2021 Morbid obesity ([facility]) 04/20/2018 Assessment and Plan Syncope and collapse and intermittent heart palpitation History of seizure disorder Per cardiology patient to be admitted for evaluation of permanent pacemaker will continue telemetry seizure precautions we will check her blood chemistry to check potassium and also check magnesium keep patient n.p.o. till seen by cardiology will hold subcu heparin for the anticipated procedure Patient is on Wellbutrin which potentially can cause seizures so we will hold it for now discussed with patient about having discussion with her psychiatrist about changing her antidepressant CODE STATUS full code VTE Prophylaxis: As above ----- Focus of this inpatient stay will remain on problems that need acute care setting for care. We will review available studies and will order additional labs, imaging and other studies as appropriate. As needed medicines are ordered as appropriate. VTE Prophylaxis will be ordered as appropriate. Please see above for m (more content not included)... 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 No Patient's goal for discharge home Patient is present with her friend, Stephanie. She lives at home by herself in [place], [place]. The patient is employed. Denies financial hardship. Attends to [facility] for mental health and contends to have psychiatric stability. Denies drug or alcohol use. Discharge plan is home. [facility] 07-09-2023 Note Procedure ECG 12 lead Performed by: Sheng Liriano DO Authorized by: Sheng Liriano DO ECG reviewed by ED Physician in the absence of a cna hha: yes Previous ECG: Previous ECG: Compared to current Interpretation: Interpretation: normal Rate: ECG rate assessment: normal Rhythm: Rhythm: sinus rhythm Ectopy: Ectopy: none QRS: QRS axis: Normal Sheng Liriano DO 07/09/23 1320 [facility] 03-19-2023 Note Patient here for 3 m o follow up s/p loop recorder insertion in November 2022. Denies chest pain, SOB, and palpitations. Review of Systems Musculoskeletal: Positive for joint pain. Neurological: Positive for light-headedness and seizures. All other systems reviewed and are negative. [facility] 03-19-2023 Note [place] Cardiology Note [facility] Reason for visit: syncope follow up, s/p loop implant Update 03/19/23: She is here for follow-up s/p loop implant Loop data review reveals some patient triggered events of lightheadedness and palpitations but they do not appear to be rhythm related. She had 1 event of what the loop labeled as VT but it is double counting QRS and T wave. Otherwise loop data review reveals no significant arrhythmia at this time. Patient has had some symptoms of lightheadedness and palpitations but otherwise no syncope, chest pain, shortness of breath, orthopnea. 10/2022 HPI: Here for follow-up regarding syncope. She was supposed to have tilt table test done and was nonobstructive not to use so she arrived and was unable to do the test. [facility] has not called her back to do the tilt table test. Her event monitor is not finalized but I have reviewed and there are no concerning rhythms that I can say are related to her all of her syncopal episodes. In the last year she has had 9 syncopal episodes and event monitor is inconclusive. She was seen by neurologist who is ruled out seizures. I discussed with patient she is a good candidate for loop monitor so we can monitor for any abnormal rhythms that may be causing her syncope. I discussed with her to get a tilt table test done at [facility] so it can be done sooner than later Review of Systems Cardiovascular: Positive for syncope. Negative for chest pain, dyspnea on exertion and palpitations. Respiratory: Negative for shortness of breath and sleep disturbances due to breathing. Neurological: Negative for dizziness, light-headedness and weakness. All other systems reviewed and are negative. ---- HPI: Tian Hess is a 37 y.o. year old with past medical history of seizures (possible pseudoseizure?) And syncope. She was recently seen by neurologist who did an EEG but cannot find seizure activity. She is not on seizure medications. She states she has prodromal symptoms of the seizure and knows when she is going to have a seizure but denies having palpitations prior to bed states she is unsure if she starts to become unaware of her surroundings. She was referred to us for possible cardiac related syncope. I discussed with her we can attempt an event monitor to see if we find anything as she is unsure with her syncopal episodes if she has had any palpitations or anything similar. We discussed doing a tilt table test to further evaluate her syncopal episodes. She denies chest pain, shortness of breath with exertion or at rest, dizziness, lightheadedness, and denies symptoms with postural changes. PMH: Past Medical History: Diagnosis Date Seizure ([facility]) Syncope PSH: No past surgical history on file. SH: Social Determinants of Health Tobacco Use: Medium Risk (03/19/2023) Patient History Smoking Tobacco Use: Former Smokeless Tobacco Use: Never Passive Exposure: Not on file Alcohol Use: Not on file Financial Resource Strain: Not on file Food Insecurity: Not on file Transportation Needs: Not on file Physical Activity: Not on file Stress: Not on file Social Connections: Not on file Intimate Partner Violence: Not on file Depression: Not on file Housing Stability: Not on file Allergies: Allergies Allergen Reactions Amoxicillin Unknown Weight: 117kg Vitals: 03/19/23 1100 BP: 136/88 Pulse: 85 SpO2: 98% Meds: Current Outpatient Medications on File Prior to Visit Medication Sig Dispense Refill amitriptyline (Elavil) 10 mg tablet Take 10 mg by mouth at bedtime. buPROPion XL (Wellbutrin XL) 150 mg 24 hr tablet Take 150 mg by mouth in the morning. meloxicam (Mobic) 15 mg tablet Take 15 mg by mouth if needed. No current facility-administered medications on file prior to visit. Physical Exam: Constitutional General Appearance: well-nourished, well-developed, appears stated age Level of Distress: comfortable Psychiatric Mental Status: alert, normal affect Orientation: oriented to time, place, and person Insight: good judgement Eyes Lids and Conjunctivae: non-injected, no xanthelasma ENMT Ears: no lesions on external ear Nose: no lesions on external nose Oropharynx: no cyanosis, no pallor Neck Neck: supple, trachea midline Carotid Arteries: bilateral normal upstroke, no bruits Jugular Veins: normal jugular venous pressure Thyroid: not enlarged Lungs Respiratory Effort: unlabored Chest Exam: normal curvature, no thoracic deformity Auscultation: clear, no wheezing, no rales, no rhonchi Cardiovascular Rate And Rhythm: regular Heart Sounds: normal S1, normal s2, no gallop Systolic Murmur: not heard Diastolic Murmur: not heard Extremities: no cyanosis, no edema, no peripheral signs of emboli Peripheral Pulses Radial Pulse: normal Abdomen Inspection and Palpation: sof (more content not included)... [facility] 12-06-2022 Note Patient seen for wou nd check s/p loop insertion on 11/29/2022. Wound is clean, dry, intact, and well approximated with Discussed wound care including avoiding, rubbing, lotions, direct shower head pressure, caution with seat belt and bra straps, as well as avoiding other irritants. [facility] 11-29-2022 Note LOOP IMPLANT PROCEDU RE NOTE DATE OF PROCEDURE: 11/29/2022 PERFORMING PHYSICIAN: Dr. Cliff Sanchez STAFF ASSISTANT: BRY INDICATIONS FOR PROCEDURE: 1. SVT/AF surveillance CONSENT: Patient LOCATION: EP lab PROCEDURAL SEDATION: None FLUOROSCOPY TIME: 0min PREPARATION: Preoperative antibiotics was administered. EBL:3cc SPECIMEN REMOVED: None PROCEDURES PERFORMED: 1. LOOP implant PROCEDURE NOTE: Patient was brought to the EP lab in the post absorptive state. A procedural pause was performed verifying the patient, the procedure. Sterile prep and drape were performed over the left precordium and anesthesia with 1% lidocaine was followed by a small incision was made in the 3rd intercostal space near the sternum on the left using the [employer] tool. The loop recorder was then injected subcutaneously and noted to have good sensing parameters. Technical details of the device as noted below. The skin was then closed with 3-0 absorbable monofilament suture and glue applied to hold the edges together. Tegaderm was applied to cover the wound. The patient appeared to tolerate the procedure well and was returned to the room in stable condition. No complications were immediately observed. Sensin.22mV. IMPRESSION: Successful placement of LOOP implant with excellent sensing parameters. COMPLICATIONS: None RECOMMENDATIONS: 1. Occlusive dressing to be changed after 7 days. 2. Do not wet the incision. Cliff Sanchez MD Cardiac Electrophysiology. [facility] 11-11-2022 Note - Did not tilt table done due to not being told not to eat on previous tilt table test to [facility], no one is called to schedule since -Patient has option to call [facility] and reschedule or have it done at an outlying facility -Due to having 9 syncopal episodes in the last year, negative event monitor I discussed with her we should proceed with loop monitor implant for syncope -She is agreeable to loop monitor [facility] 11-06-2022 Note [place] Cardiology Note [facility] Reason for visit: syncope follow up Hpi: Here for follow-up regarding syncope. She was post have tilt table test done and was nonobstructive not to use so she arrived and was unable to do the test. [facility] has not called her back to do the tilt table test. Her event monitor is not finalized but I have reviewed and there are no concerning rhythms that I can say are related to her all of her syncopal episodes. In the last year she has had 9 syncopal episodes and event monitor is inconclusive. She was seen by neurologist who is ruled out seizures. I discussed with patient she is a good candidate for loop monitor so we can monitor for any abnormal rhythms that may be causing her syncope. I discussed with her to get a tilt table test done at [facility] so it can be done sooner than later Review of Systems Cardiovascular: Positive for syncope. Negative for chest pain, dyspnea on exertion and palpitations. Respiratory: Negative for shortness of breath and sleep disturbances due to breathing. Neurological: Negative for dizziness, light-headedness and weakness. All other systems reviewed and are negative. ---- HPI: Tian Hess is a 37 y.o. year old with past medical history of seizures (possible pseudoseizure?) And syncope. She was recently seen by neurologist who did an EEG but cannot find seizure activity. She is not on seizure medications. She states she has prodromal symptoms of the seizure and knows when she is going to have a seizure but denies having palpitations prior to bed states she is unsure if she starts to become unaware of her surroundings. She was referred to us for possible cardiac related syncope. I discussed with her we can attempt an event monitor to see if we find anything as she is unsure with her syncopal episodes if she has had any palpitations or anything similar. We discussed doing a tilt table test to further evaluate her syncopal episodes. She denies chest pain, shortness of breath with exertion or at rest, dizziness, lightheadedness, and denies symptoms with postural changes. PMH: Past Medical History: Diagnosis Date Seizure (CMS/HCC) Syncope PSH: No past surgical history on file. SH: Social Determinants of Health Tobacco Use: Medium Risk Smoking Tobacco Use: Former Smokeless Tobacco Use: Never Passive Exposure: Not on file Alcohol Use: Not on file Financial Resource Strain: Not on file Food Insecurity: Not on file Transportation Needs: Not on file Physical Activity: Not on file Stress: Not on file Social Connections: Not on file Intimate Partner Violence: Not on file Depression: Not on file Housing Stability: Not on file Allergies: Allergies Allergen Reactions Amoxicillin Unknown Weight: 117kg Vitals: 11/06/22 1015 BP: 141/83 Pulse: 94 SpO2: 98% Meds: No current outpatient medications on file prior to visit. No current facility-administered medications on file prior to visit. Physical Exam: Constitutional General Appearance: well-nourished, well-developed, appears stated age Level of Distress: comfortable Psychiatric Mental Status: alert, normal affect Orientation: oriented to time, place, and person Insight: good judgement Eyes Lids and Conjunctivae: non-injected, no xanthelasma ENMT Ears: no lesions on external ear Nose: no lesions on external nose Oropharynx: no cyanosis, no pallor Neck Neck: supple, trachea midline Carotid Arteries: bilateral normal upstroke, no bruits Jugular Veins: normal jugular venous pressure Thyroid: not enlarged Lungs Respiratory Effort: unlabored Chest Exam: normal curvature, no thoracic deformity Auscultation: clear, no wheezing, no rales, no rhonchi Cardiovascular Rate And Rhythm: regular Heart Sounds: normal S1, normal s2, no gallop Systolic Murmur: not heard Diastolic Murmur: not heard Extremities: no cyanosis, no edema, no peripheral signs of emboli Peripheral Pulses Radial Pulse: normal Abdomen Inspection and Palpation: soft, non distended, no bruit, non tender Musculoskeletal Inspection: no joint swelling Neurologic Gait: normal gait Skin Inspection and Palpation: warm and dry Nails: no clubbing Labs: @LABRESULTS@ No results found for: CHOLESTEROL TOTAL, HDL, LDL CALC, LDL DIRECT, TRIGLYCERIDES, TSH, T3 TOTAL, T4 TOTAL, THYROID PEROXIDASE AB, BNP, BNP, BNP EKG: No results found for this or any previous visit (from the past 4464 hour(s)). Echo: Stress test: Coronary angiogram: @CATH@ Diagnostic: Event monitor 07/2022 Assessment and Plan: Syncope and collapse - Did not tilt table done due to not being told not to eat on previous tilt table test to [facility], no one is called to schedule since -Patient has option to call [facility] and reschedule or have it done at an outlying facility -Due to having 9 (more content not included)... [facility] 11-06-2022 Note Patient here for fol low up tilt table test - that was never performed. She said she wasn't given instructions for test prep, so was told they would call her to reschedule the test. She said she was never called to reschedule. Says the LE edema has resolved after some injections in her feet. Denies chest pain and SOB. Says she only gets palpitations when experiencing anxiety. Review of Systems Musculoskeletal: Positive for joint pain. Neurological: Positive for light-headedness and seizures. All other systems reviewed and are negative. [facility] Summary Purpose Family History No Family History Records FoundNo Family History Records FoundNo Family History Records FoundNo Family History Records Found Advance Directives No Advanced Directives Records FoundNo Advanced Directives Records FoundNo Advanced Directives Records FoundNo Advanced Directives Records Found Additional Source Comments INFORMATION SOURCE (unrecogn ized section and content) DATE CREATED AUTHOR 08/04/2022 [facility] dical Specialist DATE CREATED AUTHOR AUTHOR'S ORGANIZ ATION 11/19/[address] [facility] DATE CREATED AUTHOR AUTHOR'S ORGANIZ ATION 08/19/2023 [facility] DATE CREATED AUTHOR AUTHOR'S ORGANIZ ATION 08/27/2023 [facility] FOR RECORDS PERTAINING TO PATIENTS WHO ARE OR HAVE BEEN ENROLLED IN A CHEMICAL DEPENDENCY/SUBSTANCEABUSE PROGRAM, SOME INFORMATION MAY BE OMITTED. This clinical summary was aggregated from multiple sources. Caution should be exercised in using it in the provision of clinical care. This summary normalizes information from multiple sources, and as a consequence, information in this document may materially change the coding, format and clinical context of patient data. In addition, data may be omitted in some cases. CLINICAL DECISIONS SHOULD BE BASED ON THE PRIMARY CLINICAL RECORDS. [facility]. provides no warranty or guarantee of the accuracy or completeness of information in this document.
[2023-08-28 10:11] LABS: Basophils Absolute Auto 0.1 10^3/uL (0.0-0.1); Basophils Percent Auto 0.7 % (0.2-2.0); Eosinophils Percent Auto 0.4 % (0.9-7.0); Hematocrit 42.9 % (36.0-48.0); Hemoglobin 13.7 g/dL (12.0-16.0); Immature Granulocytes Abs Auto 0.02 10^3/uL (0.00-0.03); Immature Granulocytes Pct Auto 0.2 % (0.0-0.5); Lymphocytes Absolute Auto 2.3 10^3/uL (1.2-3.8); Mean Corpuscular HGB Conc 31.9 g/dL (29.9-35.2); Mean Corpuscular Hemoglobin 29.1 pg (26.7-34.0); Mean Corpuscular Volume 91.3 fL (81.0-99.0); Mean Platelet Volume 9.8 fL (9.5-13.5); Monocytes Absolute Auto 0.6 10^3/uL (0.3-0.8); Monocytes Percent Auto 6.5 % (1.7-12.0); Neutrophils Absolute Auto 5.5 10^3/uL (1.4-6.5); Neutrophils Percent Auto 65.2 % (43.0-75.0); Platelet Count 324 10^3/uL (150-450); Red Cell Distribution Width 12.4 % (11.0-15.0); White Blood Count 8.4 10^3/uL (4.0-11.0)
[2023-08-28 10:56] LABS: Anion Gap 13.5; BUN Creatinine Ratio 12.2; Calcium 8.7 mg/dL (8.5-10.1); Carbon Dioxide 25.7 mmol/L (21.0-32.0); Chloride 105 mmol/L (98-107); Estimated GFR (African America >60 (>=60); Estimated GFR (Non-African Ame >60 (>=60); Glucose 91 mg/dL (74-106); Potassium 4.2 mmol/L (3.5-5.1); Sodium 140 mmol/L (136-145)
== END 2023-08-28 09:26 | disposition home or self-care (01) ==
LOC: LAB 09:27
PROVIDERS: PCP Family Medicine; Visit Provider Internal Medicine Cardiovascular Disease
DX: I46.9 Cardiac arrest, cause unspecified (principal)
CPT/HCPCS: 36415; 80048; 85025

== ENCOUNTER 2023-09-17 14:59 | Outpatient (OUT) | payer BC, OTHER, SELFPAY ==
--- NOTE | 2023-09-17 15:17 | US_ITS ---
[address] [address] Patient Name: TIAN HESS MRN: [id number] date: 1985 Sex: F Assigned Patient Location: US Current Patient Location: US Accession/Order Number: [id number] Exam Date: 09/17/2023 15:20 Report Date: 09/17/2023 15:41 At the request of: KARLEY GUARDADO Procedure: US venous doppler LE BI EXAM: US venous doppler LE BI HISTORY: acute embolism and thrombosis lower extremity bilateral COMPARISON: None. TECHNIQUE: Grayscale, color and Doppler FINDINGS: Region: Bilateral legs Thrombus: None Flow: Normal Augmentation: Normal Compressibility: Normal US/US venous doppler LE BI IMPRESSION: No deep or superficial vein thrombus identified in the legs Electronically authenticated by: EDY GARCIA Date: 09/17/2023 15:41
[2023-09-17 15:38] LABS: D Dimer 0.25 mg/L FEU (<=0.59)
== END 2023-09-17 15:00 | disposition home or self-care (01) ==
LOC: US 15:02
PROVIDERS: PCP Family Medicine; Visit Provider Nurse Practitioner
DX: I82.493 Acute embolism and thrombosis of other specified deep vein of lower extremity, bilateral (principal)
CPT/HCPCS: 36415; 85378; 93970

== ENCOUNTER 2024-03-11 08:59 | Outpatient (OUT) | payer BC, SELFPAY ==
--- NOTE | 2024-03-11 09:00 | CA_ITS ---
Patient Name: TIAN CASEY MR#: [id number] : 1985 Exam Date: 03/11/2024 Ordering Doctor: KERRY THORPE CNP ECHOCARDIOGRAM REPORT PROCEDURE: CA ECHO DOPPLER COMPLETE INDICATIONS: Chest pain, Anne pacemaker (leadless) COMPARISON: None. DESCRIPTION: COMPLETE ECHOCARDIOGRAM Real-time transthoracic echocardiography with 2D, M-mode, spectral and color flow Doppler performed. QUALITY: Technical quality was good. LEFT VENTRICLE: Normal chamber size. Mild proximal septal hypertrophy (sigmoid septum). Normal systolic function. LV EF: Normal left ventricular ejection fraction, (55%). DIASTOLIC: Normal diastolic function. ATRIAL SEPTUM: Visually appears intact. LEFT ATRIUM: Normal chamber size. RIGHT ATRIUM: Normal chamber size. RIGHT VENTRICLE: Normal chamber size. Normal right ventricular systolic function. TRICUSPID VALVE: Normal mobility and thickness. No stenosis with mild regurgitation. No evidence of pulmonary hypertension. RVSP 27 mmHg MITRAL VALVE: Normal mobility and thickness. No evidence of mitral valve stenosis. There is no mitral annular calcification. Mild mitral regurgitation. AORTIC VALVE: Normal trileaflet appearance. No visible sclerosis. Normal leaflet mobility. No evidence of aortic valve stenosis. No aortic regurgitation. AORTIC ROOT: Normal diameter and appearance. Ascending aorta is normal in size. PULMONIC VALVE: Normal thickness and mobility. No stenosis. No regurgitation. PERICARDIUM: No evidence of pericardial effusion. IVC: Collapses with inspirations. IVC is normal in size. PLEURA: CONCLUSION: 1. Normal ventricular size and systolic function. LVEF is 55%. 2. Normal right ventricular size and systolic function. 3. Normal diastolic function. 4. Mild mitral and tricuspid regurgitation. 5. Normal right-sided pressures. 6. No pericardial effusion. Adult Echocardiography Procedure Report Left Ventricle LVEDD (3.7 - 5.6 cm): 4.57 cm LVESD (2.2 - 4.0 cm): 2.81 cm LVIVS thickness (0.6 - 1.2 cm): 1.07 cm LVPW thickness (0.5 - 1.0 cm): 0.89 cm E - e': 4.95 LVOT Max Gradient: 3.87 mm[Hg] LVOT Area (cm2): 0.98 m/s Peak Velocity (LVOT): 0.98 m/s Mean Velocity (LVOT): 0.57 m/s LVOT Diameter 2.20 cm Left Atrium LA Volume Index (2D A2C): 26.19 ml/m2 Left Atrium Systolic Dimension: 4.00 cm Mitral Valve MV E to A Ratio: 0.98 Mitral Valve A-Wave Peak Velocity: 0.83 m/s Mitral Valve E-Wave Peak Velocity: 0.82 m/s Right Ventricle Aorta AO Root Diam: 2.80 cm Ascending Ao Diam: 2.63 cm Aortic Valve AoV Area (Peak Yasir): 3.47 cm2, 3.47 cm2 AoV Area (VTI): 2.72 cm2, 2.72 cm2 Peak Velocity(Antegrade Flow): 1.07 m/s Peak Gradient(Antegrade Flow): 4.61 mm[Hg] Mean Velocity(Antegrade Flow): 0.71 m/s Mean Gradient(Antegrade Flow): 2.28 mm[Hg] Velocity Time Integral: 30.09 cm Tricuspid Valve Peak Velocity (Regurgitant Flow): 2.46 m/s Pulmonic Valve Mean Gradient: 5.86 mm[Hg] Mean Velocity: 1.09 m/s Peak Velocity: 1.72 m/s, 1.60 m/s Peak Gradient: 10.26 mm[Hg], 11.81 mm[Hg] Right Atrium Right Atrium Systolic Pressure: 45.76 ml, 45.76 ml Dictated by: Quique Navarrete M.D. on 03/11/2024 at 18:56 Approved by: Quique Navarrete M.D. on 03/11/2024 at 18:58
== END 2024-03-11 09:00 | disposition home or self-care (01) ==
LOC: CARD 09:00
PROVIDERS: PCP Family Medicine; Visit Provider Nurse Practitioner Family
DX: R07.89 Other chest pain (principal); Z95.0 Presence of cardiac pacemaker
CPT/HCPCS: 93306